=== PATIENT | male | born 1990 | race Hispanic/Latino ===

== ENCOUNTER 2017-12-29 10:48 | Emergency (ER) | payer OTHER ==
[2017-12-29] MEDS ORDERED: ORPHENADRINE CITRATE 30 MG/ML ML ONE (14:06)
[2017-12-29] MEDS ORDERED: KETOROLAC TROMETHAMINE 30MG/ML ONE (14:07)
== END 2017-12-29 15:12 | disposition home or self-care (01) ==
LOC: EDH 10:48
DX: M62.830 Muscle spasm of back (principal); M54.5 Low back pain; Z87.891 Personal history of nicotine dependence
CPT/HCPCS: 96372 ×2; 99284; J1885; J2360